=== PATIENT | female | born 1945 | race Asian ===

== ENCOUNTER → 2017-07-03 | Day surgery (SDC) | payer MEDICARE, OTHER ==
[~2017-07-03] VITALS: Ht 162.6 cm; Wt 53.5 kg
[~2017-07-03] MED LIST: CALC-243 PO; CLOB15CR3 TOP; DESO15CR25 TOP; FEXO180T85 PO; FLUO15OI TOPICAL; FLUT16SP NS; LEVO112T3 PO; MULT-1018 PO; OLP.1OP5 OCULAR; Sodium Chloride LOK Flush 10 mL Syringe IV PRN; fentaNYL-PF 50 mCg/mL 2 mL Inj IVPUSH PRN
[2017-07-03 07:27] VITALS: BP 117/68; PULSE 55; RESP 16; O2SAT 99
[2017-07-03] MEDS: 0.9% Sodium Chloride 1,000 ML IV SCH ×2 (07:33→08:14)
[2017-07-03 08:32] VITALS: BP 102/62; PULSE 57; RESP 16; O2SAT 100
[2017-07-03 08:43] VITALS: BP 109/65; PULSE 56; RESP 14; O2SAT 97
[2017-07-03 08:45] VITALS: BP 129/73; PULSE 60; RESP 14; O2SAT 100
--- NOTE | 2017-07-03 08:52 | ENDO ---
[address] [address] ENDOSCOPY PROCEDURE PATIENT: EAN LINDO : 1945 MR#: [id number] ADMIT: 07/03/2017 JOB ID: [id number] DATE: 07/03/2017 PRIMARY PROVIDER: Taiwo Soriano MD PROCEDURE: Colonoscopy. INDICATIONS: A 72-year-old female who reports for colon cancer screening. EQUIPMENT: PCF-H180-AL. SEDATION: 4 mg Versed and 100 mcg fentanyl. COMPLICATIONS: None identified. BOWEL PREPARATION: Excellent. PROCEDURE INFORMATION: After the risks and benefits were explained, written and verbal informed consent was obtained. The patient was brought into the endoscopy suite and placed into the left lateral decubitus position. Sedation was achieved as above. Digital rectal examination was accomplished. Mild internal hemorrhoids were noted. The scope was introduced into the rectum and advanced to the cecum as identified by the appendiceal orifice and ileocecal valve. The scope was slowly withdrawn to carefully examine the mucosa for any defects or lesions. Multiple direct views were made through the dentate line for exclusion of pathology. The colon was decompressed, the scope removed from the patient who tolerated the procedure well. FINDINGS: No significant polyps, mass lesions, or inflammatory features identified throughout. ENDOSCOPIC DIAGNOSIS: Visually unremarkable colonoscopy to cecum. RECOMMENDATIONS: Repeat colonoscopy in 10 years' time, sooner should symptoms warrant an earlier exam.
== END | disposition home or self-care (01) ==
LOC: END 02:22
PROVIDERS: ATTEND Internal Medicine Gastroenterology
DX: Z12.11 Encounter for screening for malignant neoplasm of colon (principal); E07.9 Disorder of thyroid, unspecified; Z79.899 Other long term (current) drug therapy